=== PATIENT | male | born 1955 | race American Indian/Alaskan Native ===

== ENCOUNTER 2020-01-30 11:16 | Emergency (ER) | payer MEDICARE ==
[2020-01-30] MEDS ORDERED: METOCLOPRAMIDE 10 MG TAB PO ONE (23:19)
[2020-01-30 23:26] VITALS: BP 111/84
--- NOTE | 2020-01-30 23:26 | Emergency Department Report ---
ED General Adult HPI - General Chief complaint: Syncope Stated complaint: PASSED OUT YESTERDAY PUI?: No Time Seen by Provider: 01/30/20 23:10 Source: patient, RN notes reviewed Mode of arrival: Ambulatory Limitations: No Limitations - History of Present Illness Initial comments: The patient was evaluated in the emergency department for symptoms described in the history of present illness. He/she was evaluated in the context of the global COVID-19 pandemic, which necessitated consideration that the patient might be at risk for infection with the virus that causes COVID-19. Institutional protocols and algorithms that pertain to the evaluation of patients at risk for COVID-19 are in a state of rapid change based on inform ation released by regulatory bodies including the CDC and federal and state organizations. These policies and algorithms were followed during the patient's care in the emergency department. Please note that these policies, procedures and recommendations changed on a rapid basis. Patient is a 64-year-old gentleman. He is not known to myself previously. He states he does not have a primary care doctor. He reports a history of rheumatoid arthritis. He states he does not take any prescription medication at this time Patient states he is currently staying at a local psychiatric facility, on a voluntary basis, for alcohol dependence. He states his last alcoholic beverage was over 2 months ago. The patient presents to the ER at the recommendation from a nurse at the aforementioned facility for evaluation. Patient reports that yesterday, January 29, 2020, at approximately 4:00 PM, he was sitting down in a chair, at a [facility], and reports while sitting down, he developed a sensation of not being able to move his entire body, not being able to close his eyes, and not being able to breathe. He states he was awake for this entire event. He states this is never happened to him before. He states there is no antecedent trauma. During this event, he states that he developed headache, which is not sudden or thunderclap in nature, not maximal in intensity, and not the worst headache of his life. The headache is frontal and bitemporal. There is no neck pain, chest pain, abdominal pain, he has no shortness of breath at this time, he denies DVT and pulmonary embolism risk factors. He is chronic arthritic pain, and on review of systems, endorses a urinary irritation, but r eports no testicular pain, and no sexual contacts for "a long time." He states the aforementioned episode lasted for approximately 4 minutes, resolved on its own, did not radiate anywhere, and did not have exacerbating or relieving factors. He reports being back to his baseline for approximately 30 hours. -: Sudden Severity scale (0 -10): 0 Consistency: now resolved Improves with: none Worsens with: none Associated Symptoms: denies other symptoms - Related Data Allergies Allergy/AdvReac Type Severity Reaction Status Date / Time No Known Allergies Allergy Unverified 01/30/20 11:25 ED Review of Systems ROS: Stated complaint: PASSED OUT YESTERDAY Other details as noted in HPI Constitutional: denies: fever Eyes: denies: eye discharge, vision change ENT: denies: throat pain Respiratory: shortness of breath. denies: cough Cardiovascular: denies: chest pain, syncope Gastrointestinal: denies: abdominal pain Genitourinary: urgency Musculoskeletal: denies: back pain Neurological: headache. denies: numbness, paresthesias, confusion Psychiatric: anxiety ED Past Medical Hx - Past Medical History Previous Medical History?: No Hx Arthritis: Yes (RA) - Surgical History Past Surgical History?: No - Social History Smoking Status: Current Every Day Smoker Substance Use Type: Marijuana ED Physical Exam - General Limitations: No Limitations General appearance: alert, in no apparent distress - Head Head exam: Present: atraumatic, normocephalic - Eye Eye exam: Present: normal appearance, PERRL, EOMI, other (Visual acuity intact to finger counting, color perception, reading at a close distance). Absent: nystagmus - ENT ENT exam: Present: normal exam, normal orophraynx, mucous membranes moist, felix l external ear exam - Neck Neck exam: Present: normal inspection, full ROM. Absent: tenderness, meningismus - Respiratory Respiratory exam: Present: normal lung sounds bilaterally. Absent: respiratory distress, wheezes, rales, rhonchi, stridor, decreased breath sounds - Cardiovascular Cardiovascular Exam: Present: regular rate, normal rhythm, normal heart sounds. Absent: bradycardia, tachycardia, irregular rhythm, systolic murmur, diastolic murmur, rubs, gallop - GI/Abdominal GI/Abdominal exam: Present: soft. Absent: distended, tenderness, guarding, rebound, rigid, pulsatile mass - Rectal Rectal exam: Present: deferred - Extremities Exam Extremities exam: Present: normal inspection, full ROM, other (2+ pulses noted in the bilateral upper and lower extremities. There is no palpable cord. negative Homans sign. Muscular compartments are soft. The pelvis is stable.). Absent: pedal edema, calf tenderness - Back Exam Back exam: Present: normal inspection, full ROM. Absent: tenderness, CVA tenderness (R), CVA tenderness (L), paraspinal tenderness, vertebral tenderness - Neurological Exam Neurological exam: Present: alert, oriented X3, normal gait, other (No facial d hayden. Tongue midline. Extraocular movements intact bilaterally. Facial sensation intact to light touch in V1, V2, V3 distribution bilaterally. 5 and a 5 strength in 4 extremities. Sensation intact to light touch in 4 extremities.) - Psychiatric Psychiatric exam: Present: agitated. Absent: homicidal ideation, suicidal ideation - Skin Skin exam: Present: warm, dry, intact, normal color. Absent: rash ED Course Vital Signs 01/30/20 01/30/20 01/30/20 11:29 17:45 23:24 Temperature 98.0 F 98.2 F 98.1 F Pulse Rate 66 72 57 L Respiratory 22 18 16 Rate Blood Pressure 109/85 121/73 Blood Pressure 111/84 [Right] O2 Sat by Pulse 97 99 Oximetry - Reevaluation(s) Reevaluation #1: 01/30/20 23:28 Differential diagnosis, including but not limited to: Electrolyte derangement, focal seizure, intracranial lesion, thyroid derangement, conversion disorder, orthostasis, vagal events Assessment and plan: 64-year-old gentleman, who is not currently tachycardic, tachypneic or hypoxic, with no DVT or pulmonary embolism risk factors, who is low risk by Wells criteria, GCS 15, NIH score of 0, walking with a steady gait, low risk for major adverse cardiac event as per heart score, with a primary complaint of developing a sensation of not able to move his whole body, or breathe or blink, which lasted for 4 minutes, yesterday, and is now resolved. Patient is now 32 hours status post his described event. His vital signs are unremarkable, and his physical exam is unremarkable. Check basic laboratory studies, noncontrast CT scan of the brain, treat symptoms. Do not anticipate need for hospitalization or admission, patient may follow-up with an outpatient primary care doctor, neurologist or director of manufacturing, assuming initial diagnostics unremarkable, which we anticipate. Reevaluation #2: 01/31/20 00:[address] scan of the brain negative for acute findings. Chronic findings noted. ED Medical Decision Making - Lab Data Result diagrams: 01/30/20 23:30 01/30/20 23:30 Vital Signs 01/30/20 01/30/20 01/30/20 11:29 17:45 23:24 Temperature 98.0 F 98.2 F 98.1 F Pulse Rate 66 72 57 L Respiratory 22 18 16 Rate Blood Pressure 109/85 121/73 Blood Pressure 111/84 [Right] O2 Sat by Pulse 97 99 Oximetry Lab Results 01/30/20 01/30/20 01/30/20 Range/Units 23:30 23:30 23:30 WBC 7.4 (4.5-11.0) K/mm3 RBC 4.82 (3.65-5.03) M/mm3 Hgb 15.7 H (11.8-15.2) gm/dl Hct 45.4 (35.5-45.6) % MCV 94 (84-94) fl MCH 33 H (28-32) pg MCHC 35 H (32-34) % RDW 14.6 (13.2-15.2) % Plt Count 236 (140-440) K/mm3 PT 12.3 (12.2-14.9) Sec. INR 0.90 (0.87-1.13) Sodium 139 (137-145) mmol/L Potassium 4.6 (3.6-5.0) mmol/L Chloride 101.6 (98-107) mmol/L Carbon Dioxide 25 (22-30) mmol/L Anion Gap 17 mmol/L BUN 16 (9-20) mg/dL Creatinine 0.9 (0.8-1.3) mg/dL Estimated GFR > 60 ml/min BUN/Creatinine Ratio 18 % Glucose 91 (75-100) mg/dL POC Glucose (70-105) Calcium 9.3 (8.4-10.2) mg/dL Magnesium 2.10 (1.7-2.3) mg/dL Total Bilirubin 0.50 (0.1-1.2) mg/dL AST 94 H (5-40) units/L ALT 77 H (7-56) units/L Alkaline Phosphatase 127 (35-129) units/L Total Creatine Kinase 97 (55-170) units/L Total Protein 8.2 (6.3-8.2) g/dL Albumin 4.1 (3.9-5) g/dL Albumin/Globulin Ratio 1.0 % Salicylates (2.8-20.0) mg/dL Acetaminophen (10.0-30.0) ug/mL 01/30/20 01/30/20 01/31/20 Range/Units 23:30 23:30 00:12 WBC (4.5-11.0) K/mm3 RBC (3.65-5.03) M/mm3 Hgb (11.8-15.2) gm/dl Hct (35.5-45.6) % MCV (84-94) fl MCH (28-32) pg MCHC (32-34) % RDW (13.2-15.2) % Plt Count (140-440) K/mm3 PT (12.2-14.9) Sec. INR (0.87-1.13) Sodium (137-145) mmol/L Potassium (3.6-5.0) mmol/L Chloride (98-107) mmol/L Carbon Dioxide (22-30) mmol/L Anion Gap mmol/L BUN (9-20) mg/dL Creatinine (0.8-1.3) mg/dL Estimated GFR ml/min BUN/Creatinine Ratio % Glucose (75-100) mg/dL POC Glucose 80 (70-105) Calcium (8.4-10.2) mg/dL Magnesium (1.7-2.3) mg/dL Total Bilirubin (0.1-1.2) mg/dL AST (5-40) units/L ALT (7-56) units/L Alkaline Phosphatase (35-129) units/L Total Creatine Kinase (55-170) units/L Total Protein (6.3-8.2) g/dL Albumin (3.9-5) g/dL Albumin/Globulin Ratio % Salicylates < 0.3 L (2.8-20.0) mg/dL Acetaminophen 5.0 L (10.0-30.0) ug/mL - EKG Data -: EKG Interpreted by [facility] EKG shows normal: sinus rhythm Rate: normal - EKG Data When compared to previous EKG there are: previous EKG unavailable 01/30/20 23:28 Sinus rhythm, 62 bpm, left axis deviation, left anterior fascicular block, poor R wave progression, left ventricular hypertrophy, the EKG is abnormal, the EKG is not a STEMI. - Radiology Data Radiology results: pending, image reviewed Critical care attestation.: If time is entered above; I have spent that time in minutes in the direct care of this critically ill patient, excluding procedure time. ED Disposition Clinical Impression: Headache, History of weakness, Left axis deviation, General medical exam, Transaminitis Disposition: DC-01 TO HOME OR SELFCARE Is pt being admited?: No Does the pt Need Aspirin: No Condition: Good Additional Instructions: Please make certain to drink 4 to 6 cups of water per day indefinitely. Take a multivitamin [id number]. Patient may alternate ibuprofen [id number] with acetaminophen [id number], as needed for headache, and arthritic bony pain. Recommend patient take a baby aspirin [id number], 81 mg daily. Recommend the patient not drive or operate motor vehicles for the next 6 months, or until cleared to do so by a primary care doctor, neurologist or director of manufacturing. We recommend that the patient follow-up with a primary care doctor, neurologist, or director of manufacturing within the next 5 to 7 days. For the patient's convenience, we have listed a number of local physicians, including primary care, neurology, and cardiology. Recommend that patient contact 1 of the listed offices to arrange close outpatient follow-up. Please return to the emergency room right away with new pain, worsening pain, migration of pain, projectile vomiting, change in mental status, confusion, inability to tolerate liquid feeds, new, worsened or different symptoms not present on the initial emergency room evaluation Avoid consumption and alcohol, and has a primary care doctor contact medical records department to obtain copies of laboratory studies, and follow-up on laboratory results. In particular, patient had a slight increase from normal levels in his liver function tests, which is most likely secondary to prior history of alcohol use. This should be followed up and monitored by an outpatient primary care doctor as recommended. Referrals: GURWINDER CRUZ MD [Staff Physician] - 3-5 Days MILVIA SHAW MD [Referring] - 3-5 Days FRANCISCO J STILL MD [Staff Physician] - 3-5 Days
[2020-01-31 00:07] LABS: Hematocrit 45.4 % (35.5-45.6); Hemoglobin 15.7 gm/dl (11.8-15.2); Mean Corpuscular HGB Conc 35 % (32-34); Mean Corpuscular Volume 94 fl (84-94); Platelet Count 236 K/mm3 (140-440); Red Blood Count 4.82 M/mm3 (3.65-5.03); Red Cell Distribution Width 14.6 % (13.2-15.2)
[2020-01-31 00:16] LABS: Alanine Aminotransferase 77 units/L (7-56); Albumin 4.1 g/dL (3.9-5); BUN/Creatinine Ratio 18; Blood Urea Nitrogen 16 mg/dL (9-20); Calcium 9.3 mg/dL (8.4-10.2); Hemolysis Index 30
[2020-01-31 00:17] LABS: INR 0.9 (0.87-1.13)
[2020-01-31 00:32] LABS: Bacteria,Urine 1+ /HPF (Negative); Bilirubin,Urine NEG (Negative); Blood,Urine NEG (Negative); Color,Urine Yellow (Yellow); Mucus,Urine FEW /HPF; Protein,Urine <15 mg/dL mg/dL (Negative)
--- NOTE | 2020-01-31 00:46 | Cat Scan Report ---
CT head/brain wo con INDICATION: headache. TECHNIQUE: All CT scans at this location are performed using CT dose reduction for ALARA by means of automated e xposure control. COMPARISON: None available. FINDINGS: Visualized paranasal and mastoid sinuses are clear. 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 Moderate periventricular white matter ischemic change . No mass effect, hemorrhage or other acute abnormality. IMPRESSION: 1. No acute abnormality. Signer Name: Abhishek Montenegro MD Signed: 01/31/2020 12:41 AM Workstation Name: [id number]
== END 2020-01-31 01:30 | disposition home or self-care (01) ==
LOC: ED 11:16
DX: R74.8 Abnormal levels of other serum enzymes (principal); R53.1 Weakness; R94.31 Abnormal electrocardiogram [ECG] [EKG]; R51.9 Headache, unspecified; Z00.00 Encounter for general adult medical examination without abnormal findings; M19.91 Primary osteoarthritis, unspecified site; F17.200 Nicotine dependence, unspecified, uncomplicated; F12.10 Cannabis abuse, uncomplicated; Z86.73 Personal history of transient ischemic attack (TIA), and cerebral infarction without residual deficits
CPT/HCPCS: 36415; 70450; 80053; 80320; 81001; 82550; 82962; 83735; 85027; 85610; 93005; G0480